=== PATIENT | female | born 1945 | race Caucasian/White ===

== ENCOUNTER 2016-09-17 07:35 | Inpatient (IN) | payer OTHER ==
[2016-09-03 11:06] VITALS: BP 174/92
[~2016-09-17] VITALS: Ht 157.5 cm; Wt 81.5 kg
[~2016-09-17 07:35] MED LIST: CETI10CA PO; DOCU100T6 PO; ESTR0.5T PO; ESTROGENS CONJUGATED VAG CRM 0.625MG/1G, 30GM ONE; FIBER PO; FLUORESCEIN SODIUM 500 MG/5 ML ONE; GLUC1500 PO; LEVO100T5 PO; LIDOCAINE 1%-EPI 1:100K, 30ML ONE; LOSA1TAB17 PO; MULT-230 PO; MULT-82 PO; NEOMY/POLYMYXIN B GU IRR. 1 ML IRRIG ONE; OMEG1CAP12 PO; THROMBIN 5,000 UNIT VIAL TP ONE
[2016-09-17] MEDS ORDERED: LIDOCAINE 1%, 2ML ONE (08:19)
[2016-09-17] MEDS ORDERED: LIDOCAINE 1%, 2ML SQ PRN (08:30)
[2016-09-17] MEDS: LACTATED RINGERS 1,000 ML IV SCH ×2 (08:38→21:50)
[2016-09-17] MEDS ORDERED: FENTANYL PF 250 MCG/5ML ONE (09:19)
[2016-09-17] MEDS ORDERED: MIDAZOLAM 1 MG/ML, 2ML ONE (09:19)
[2016-09-17] MEDS ORDERED: KETOROLAC 30 MG/1 ML ONE (09:40)
[2016-09-17] MEDS ORDERED: CEFAZOLIN 1,000 MG ONE (09:40)
[2016-09-17] MEDS ORDERED: SUCCINYLCHOLINE 20 MG/ML, 10ML ONE (09:40)
[2016-09-17] MEDS ORDERED: ONDANSETRON 2MG/ML, 2ML ONE (09:40)
[2016-09-17] MEDS ORDERED: PHENYLEPHRINE 10 MG/ML ONE (09:40)
[2016-09-17] MEDS ORDERED: PROPOFOL 10 MG/ML, 20ML ONE (09:40)
[2016-09-17] MEDS ORDERED: DEXAMETHASONE 4 MG/ML, 5ML ONE (09:40)
[2016-09-17] MEDS ORDERED: EPHEDRINE 50 MG/ML, 1ML ONE (09:40)
[2016-09-17] MEDS ORDERED: HYDROmorphone 1 MG/ML, 1ML ONE (10:15)
[2016-09-17] MEDS ORDERED: OXYcodone 5 MG/5 ML ORAL.SOL UDC PO PRN (10:30)
[2016-09-17] MEDS ORDERED: PROMETHAZINE 25 MG/ML, 1ML IV PRN (10:30)
[2016-09-17] MEDS ORDERED: MIDAZOLAM 1 MG/ML, 2ML IV PRN (10:30)
[2016-09-17] MEDS ORDERED: ACETAMINOPHEN 325 MG TABLET PO PRN (10:30)
[2016-09-17] MEDS ORDERED: LABETALOL 5MG/ML, 20ML IV PRN (10:30)
[2016-09-17] MEDS ORDERED: HYDROmorphone 1 MG/ML, 1ML IV PRN (10:30)
[2016-09-17] MEDS ORDERED: MEPERIDINE/PF 25MG/0.5ML IVPush PRN (10:30)
[2016-09-17] MEDS ORDERED: ALBUTEROL/IPRATROPIUM 2.5MG/0.5MG, 3 ML NPPB PRN (10:30)
[2016-09-17] MEDS ORDERED: ONDANSETRON 2MG/ML, 2ML IVPush PRN ×2 (10:30→16:30)
[2016-09-17] MEDS ORDERED: hydrALAzine 20 MG/ML, 1ML IV PRN (10:30)
[2016-09-17] MEDS ORDERED: FENTANYL PF 100 MCG/2ML IV PRN (10:30)
[2016-09-17] MEDS ORDERED: DIPHENHYDRAMINE 50 MG/ML, 1ML IVPush PRN (16:30)
[2016-09-17] MEDS ORDERED: HYDROcodone/APAP 5/325 TABLET PO PRN (16:30)
[2016-09-17 19:10] VITALS: BP 124/74
[2016-09-17 20:10] VITALS: BP 124/74
[2016-09-18 02:00] VITALS: BP 116/67
[2016-09-18] MEDS: LACTATED RINGERS 1,000 ML IV SCH (05:36)
[2016-09-18] MEDS ORDERED: LEVOTHYROXINE 100 MCG TABLET PO SCH (06:00)
[2016-09-18 08:55] VITALS: BP 134/69
[2016-09-18] MEDS ORDERED: HYDROCHLOROTHIAZIDE 25 MG TABLET PO SCH (09:00)
[2016-09-18] MEDS ORDERED: LOSARTAN 50MG TABLET PO SCH (09:00)
[2016-09-18] MEDS ORDERED: ESTRADIOL 0.5 MG TABLET PO SCH (09:00)
[2016-09-18] MEDS ORDERED: HYDR-3240 PO (12:28)
== END 2016-09-18 13:15 | disposition home or self-care (01) | DRG 748 ==
LOC: OUT 07:35 → 2NW 15:44
PROVIDERS: ADMIT Obstetrics & Gynecology Gynecology; ATTEND Obstetrics & Gynecology Gynecology
PROC: 0TSD0ZZ Reposition Urethra, Open Approach (ICD-10-PCS; 2016-09-17)
PROC: 0TQD0ZZ Repair Urethra, Open Approach (ICD-10-PCS; 2016-09-17)
PROC: 0JQC0ZZ Repair Pelvic Region Subcutaneous Tissue and Fascia, Open Approach (ICD-10-PCS; 2016-09-17)
PROC: 0JQC0ZZ Repair Pelvic Region Subcutaneous Tissue and Fascia, Open Approach (ICD-10-PCS; principal; 2016-09-17 10:00)
DX: N39.3 Stress incontinence (female) (male) (principal); N81.10 Cystocele, unspecified; Z90.710 Acquired absence of both cervix and uterus; Z90.49 Acquired absence of other specified parts of digestive tract; N99.3 Prolapse of vaginal vault after hysterectomy
CPT/HCPCS: 36415; 85014; J0690; J1100; J1170; J1885; J2250; J2405; J2704; J3010; J3490; C1771; J0330; J2370; J7120